=== PATIENT | female | born 1950 | race African-American/Black ===

== ENCOUNTER 2020-05-25 00:54 | Emergency (ER) | payer MEDICARE ==
[~2020-05-25] VITALS: Ht 165.1 cm; Wt 68.0 kg
[2020-05-25 01:30] VITALS: BP 111/73
[2020-05-25 01:35] LABS: CREATININE 1.1 MG/DL (0.55-1.30); POTASSIUM 3.3 MMOL/L (3.5-5.1)
[2020-05-25 01:41] LABS: BILIRUBIN,TOTAL 0.3 MG/DL (0.2-1.0)
[2020-05-25 01:42] LABS: BASOPHILS % (AUTO) 2.7 % (0.0-2.0); EOSINOPHILS % (AUTO) 0.8 % (0.0-3.0); HEMATOCRIT 38.5 % (37.0-47.0); LYMPHOCYTES % (AUTO) 39.4 % (20.0-45.0); MEAN CORPUSCULAR VOLUME 85 FL (80-99); MONOCYTES % (AUTO) 8.8 % (1.0-10.0); NEUTROPHILS % (AUTO) 48.2 % (45.0-75.0); PLATELET COUNT 271 K/UL (150-450); RED BLOOD COUNT 4.55 M/UL (4.20-5.40); RED CELL DISTRIBUTION WIDTH 13.4 % (11.6-14.8); WHITE BLOOD COUNT 8.6 K/UL (4.8-10.8)
[2020-05-25 03:00] VITALS: BP 115/75
[2020-05-25 04:00] VITALS: BP 123/77
--- NOTE | 2020-05-25 04:22 | Diagnostic Imaging Report ---
EXAM: CT Head Without Intravenous Contrast CLINICAL HISTORY: DIZZY TECHNIQUE: Axial computed tomography images of the head/brain without intravenous contrast. CTDI is 53.4 mGy and DLP is 1179.1 mGy-cm. One or more of the following dose reduction techniques were used: automated exposure control, adjustment of the mA and/or kV according to patient size, use of iterative reconstruction technique. COMPARISON: No previous studies. FINDINGS: Brain: Small vessel disease of aging. No abnormal extra-axial collection. No hemorrhage. Midline shift: No midline shift or mass-effect. Ventricles: There is prominence of the ventricular system, cortical sulci, basilar cisterns, compatible with age related atrophy. Bones/joints: Calvarium is within normal limits. No acute fracture. Soft tissues: Unremarkable. Sinuses: Visualized sinuses are unremarkable. Mastoid air cells: Mastoid air cells are well pneumatized. IMPRESSION: 1. Age-related changes. 2. No acute intracranial pathology. 3. If there is concern for etiology such as early acute lacunar infarcts, magnetic resonance imaging of the brain with diffusion-weighted sequences should be performed.
[2020-05-25 05:15] VITALS: BP 121/74
--- NOTE | 2020-05-25 05:15 | Emergency Room Report ---
History of Present Illness General Chief Complaint: Dizziness Source: Patient Present Illness HPI 69-year-old female presents to ED for evaluation. Brought in by EMS from home. Complaining of dizziness and feeling weak. Symptoms started tonight. States that she feels lightheaded. Denies room spinning sensation. Denies LOC. Denies fevers or chills. No other aggravating relieving factors. Denies any ot her associated symptoms Allergies: Coded Allergies: No Known Allergies (Unverified , 05/25/20) COVID-19 Screening Contact w/high risk pt: No Experienced COVID-19 symptoms?: No COVID-19 Testing performed FRONT MAKER: No Patient History Past Medical History: DM, HTN Past Surgical History: none Pertinent Family History: none Social History: Denies: smoking, alcohol use, drug use Now: No Immunizations: UTD Reviewed Nursing Documentation: PMH: Agreed; PSxH: Agreed Nursing Documentation-PMH Hx Hypertension: Yes Hx Diabetes: Yes Review of Systems All Other Systems: negative except mentioned in HPI Physical Exam Vital Signs Date Time Temp Pulse Resp B/P (MAP) Pulse Ox O2 Delivery O2 Flow Rate FiO2 05/25/20 00:58 97.5 80 16 160/90 (113) 99 Room Air Sp02 EP Interpretation: reviewed, normal General Appearance: no apparent distress, alert, GCS 15, non-toxic Head: normocephalic, atraumatic Eyes: bilateral eye normal inspection, bilateral eye PERRL ENT: hearing grossly normal, normal pharynx, no angioedema, normal voice Neck: full range of motion, supple/symm/no masses Respiratory: chest non-tender, lungs clear, normal breath sounds, speaking full sentences Cardiovascular #1: regular rate, rhythm, no edema Cardiovascular #2: 2+ carotid (R), 2+ carotid (L), 2+ radial (R), 2+ radial (L), 2+ dorsalis pedis (R), 2+ dorsalis pedis (L) Gastrointestinal: normal bowel sounds, non tender, soft, non-distended, no guarding, no rebound Rectal: deferred Genitourinary: normal inspection, no CVA tenderness Musculoskeletal: back normal, normal range of motion, gait/station normal, non- tender Neurologic: alert, motor strength/tone normal, oriented x3, sensory intact, responsive, speech normal Psychiatric: judgement/insight normal, memory normal, mood/affect normal, no suicidal/homicidal ideation Reflexes: 3+ bicep (R), 3+ bicep (L), 3+ tricep (R), 3+ tricep (L), 3+ knee (R), 3+ knee (L) Skin: no rash Lymphatic: no adenopathy Medical Decision Making Diagnostic Impression: Primary Impression: Dizziness ER Course Hospital Course 69-year-old female presents with dizziness and weakness Differential diagnoses include: arrythmia, dehydration, intracranial bleed, seizure Clinical course Patient placed on stretcher. on hospital monitor. After initial history and physical I ordered labs, EKG, IVFs, CT Brain labs reviewed- no leukocytosis, Hb/Hct stable, electrolytes ok, troponins negative CT Brain - unremarkable EKG - NSR no acute ischemic changes interpretd by me After IV hydration patient states she feels better. Walking in ED without difficulty. I discussed findings with patient. Vitals stable. Labs unremarkable. CT negative. Safe for discharge with close outpatient follow-up. States she has a PMD I. I feel this is a highly complex case requiring extensive working including EKG/Rhythm strip, Xray/CT/US, Blood/urine lab work, repeat exams while in ED, and administration of strong opiates/narcotics for pain control, admission to hospital or close patient follow up. Diagnosis - dizziness Stable and discharged to home. Followup with PMD. Return to ED if symptoms recur or worsen Laboratory Tests Test 05/25/20 01:00 White Blood Count 8.6 K/UL (4.8-10.8) Red Blood Count 4.55 M/UL (4.20-5.40) Hemoglobin 13.0 G/DL (12.0-16.0) Hematocrit 38.5 % (37.0-47.0) Mean Corpuscular Volume 85 FL (80-99) Mean Corpuscular Hemoglobin 28.5 PG (27.0-31.0) Mean Corpuscular Hemoglobin Concent 33.6 G/DL (32.0-36.0) Red Cell Distribution Width 13.4 % (11.6-14.8) Platelet Count 271 K/UL (150-450) Mean Platelet Volume 5.9 FL (6.5-10.1) L Neutrophils (%) (Auto) 48.2 % (45.0-75.0) Lymphocytes (%) (Auto) 39.4 % (20.0-45.0) Monocytes (%) (Auto) 8.8 % (1.0-10.0) Eosinophils (%) (Auto) 0.8 % (0.0-3.0) Basophils (%) (Auto) 2.7 % (0.0-2.0) H Sodium Level 140 MMOL/L (136-145) Potassium Level 3.3 MMOL/L (3.5-5.1) L Chloride Level 105 MMOL/L (98-107) Carbon Dioxide Level 29 MMOL/L (21-32) Anion Gap 6 mmol/L (5-15) Blood Urea Nitrogen 18 mg/dL (7-18) Creatinine 1.1 MG/DL (0.55-1.30) Estimat Glomerular Filtration Rate 59.8 mL/min (>60) Glucose Level 150 MG/DL (74-106) H Calcium Level 10.0 MG/DL (8.5-10.1) Total Bilirubin 0.3 MG/DL (0.2-1.0) Aspartate Amino Transf (AST/SGOT) 18 U/L (15-37) Alanine Aminotransferase (ALT/SGPT) 28 U/L (12-78) Alkaline Phosphatase 67 U/L (46-116) Troponin I 0.011 ng/mL (0.000-0.056) Total Protein 7.9 G/DL (6.4-8.2) Albumin 4.0 G/DL (3.4-5.0) Globulin 3.9 g/dL Albumin/Globulin Ratio 1.0 (1.0-2.7) EKG Diagnostic Results Rate: normal Rhythm: NSR ST Segments: no acute changes ASA given to the pt in ED: No Rhythm Strip Diag. Results EP Interpretation: yes Rhythm: NSR, no PVC's, no ectopy CT/MRI/US Diagnostic Results CT/MRI/US Diagnostic Results : Imaging Test Ordered: CT Head Impression Procedure: CT Head no Contrast EXAM: CT Head Without Intravenous Contrast CLINICAL HISTORY: DIZZY TECHNIQUE: Axial computed tomography images of the head/brain without intravenous contrast. CTDI is 53.4 mGy and DLP is 1179.1 mGy-cm. One or more of the following dose reduction techniques were used: automated exposure control, adjustment of the mA and/or kV according to patient size, use of iterative reconstruction technique. COMPARISON: No previous studies. FINDINGS: Brain: Small vessel disease of aging. No abnormal extra-axial collection. No hemorrhage. Midline shift: No midline shift or mass-effect. Ventricles: There is prominence of the ventricular system, cortical sulci, basilar cisterns, compatible with age related atrophy. Bones/joints: Calvarium is within normal limits. No acute fracture. Soft tissues: Unremarkable. Sinuses: Visualized sinuses are unremarkable. Mastoid air cells: Mastoid air cells are well pneumatized. IMPRESSION: 1. Age-related changes. 2. No acute intracranial pathology. 3. If there is concern for etiology such as early acute lacunar infarcts, magnetic resonance imaging of the brain with diffusion-weighted sequences should be performed. Last Vital Signs Date Time Temp Pulse Resp B/P (MAP) Pulse Ox O2 Delivery O2 Flow Rate FiO2 //20 03:00 98.1 75 17 115/75 97 Room Air Status: improved Disposition: HOME, SELF-CARE Condition: Stable Referrals: NOT CHOSEN IPA/,REFERRING (PCP) Cameron Gonzalez MD May 25, 2020 05:15
[2020-05-25 05:50] VITALS: BP 121/74
--- NOTE | 2020-05-25 06:42 | Diagnostic Imaging Report ---
EXAM: XR Chest, 1 View CLINICAL HISTORY: DIZZY TECHNIQUE: Frontal view of the chest. COMPARISON: No previous studies. FINDINGS: Lungs: Unremarkable. No consolidation. Pleural space: Unremarkable. No pneumothorax. Heart: Cardiomediastinal silhouette unremarkable. Mediastinum: See above. Bones/joints: Osteopenia appeared The ribs are grossly unremarkable. Gentle dextro scoliosis of the thoracic spine. Other findings: Hypoaeration. IMPRESSION: 1. Hypoaeration. 2. No active disease.
--- NOTE | 2020-05-27 17:06 | Cardiology Report ---
APPROVED REPORT EKG Measurement Heart [id number] <Conclusion> Normal sinus rhythm Nonspecific T wave abnormality Abnormal ECG
== END 2020-05-25 05:50 | disposition home or self-care (01) ==
LOC: EDBD 00:54 → EMR 01:15
DX: R42 Dizziness and giddiness (principal); R53.1 Weakness; E11.9 Type 2 diabetes mellitus without complications; I10 Essential (primary) hypertension
CPT/HCPCS: 36415; 70450; 71045; 80053; 84484; 85025; 93005; 96360; 99284; J7030